=== PATIENT | female | born 1980 | race African-American/Black ===

== ENCOUNTER 2016-12-02 17:02 | Emergency (ER) | payer SELFPAY ==
--- NOTE | 2016-12-02 18:19 | ER Document Report ---
ED Medical Screen (RME) - General Stated Complaint: EAR PAIN Notes: 36 YO female c/o right ear pain x several weeks. pt c/o eczema flare x several weeks. TRAVEL OUTSIDE OF THE [place] IN LAST 30 DAYS: No - Related Data Allergies/Adverse Reactions: No Known Allergies Allergy (Verified 01/30/16 08:04) Past Medical History Past Surgical History: Reports: Hx Section - Immunizations Hx Diphtheria, Pertussis, Tetanus Vaccination: No Physical Exam - Vital signs Vitals: Temp Pulse Resp BP Pulse Ox 98.3 F 87 18 148/76 H 100 12/02/16 18:04 12/02/16 18:04 12/02/16 18:04 12/02/16 18:04 12/02/16 18:04 Course - Vital Signs Vital signs: Temp Pulse Resp BP Pulse Ox 98.3 F 87 18 148/76 H 100 12/02/16 18:04 12/02/16 18:04 12/02/16 18:04 12/02/16 18:04 12/02/16 18:04
[2016-12-02] MEDS ORDERED: CEPHALEXIN 500 MG CAPSULE PO ONE (22:10)
[2016-12-02] MEDS ORDERED: PREDNISONE 20 MG TABLET PO ONE (22:10)
[2016-12-02] MEDS ORDERED: CIPROFLOXACIN HCL/DEXAMETH OTIC DROP 7.5 ML AD ONE (22:11)
--- NOTE | 2016-12-02 22:15 | ER Document Report ---
ED General - General Chief Complaint: Ear Pain Stated Complaint: EAR PAIN Notes: Patient is a 36-year-old female presents with complaint of severe psoriasis. She used to be on transabdominal cream but has not seen her doctor. She also planes of pain in her right ear for the last 2 weeks. No fevers. No infections. Mild cough. She does use Q-tips to try to clean out her ears. She says the inside of her ear feels irritated. She says it feels as if there is something in there. TRAVEL OUTSIDE OF THE [place] IN LAST 30 DAYS: No - Related Data Allergies/Adverse Reactions: shellfish derived Allergy (Verified 12/02/16 20:56) Past Medical History - Social History Smoking Status: Current Every Day Smoker Chew tobacco use (# tins/day): No Frequency of alcohol use: None Drug Abuse: None Family History: Reviewed & Not Pertinent Patient has suicidal ideation: No Patient has homicidal ideation: No Renal/ Medical History: Denies: Hx Peritoneal Dialysis Past Surgical History: Reports: Hx Section - Immunizations Hx Diphtheria, Pertussis, Tetanus Vaccination: No Review of Systems - Review of Systems Notes: My Normal Review Basic REVIEW OF SYSTEMS: CONSTITUTIONAL : Denies fever, chills, or sweats. Denies recent illness. EENT: Right ear pain CARDIOVASCULAR: Denies chest pain. RESPIRATORY: Denies cough, cold, or chest congestion. Denies shortness of breath, difficulty breathing, or wheezing. GASTROINTESTINAL: Denies abdominal pain. Denies nausea, vomiting, or diarrhea. Denies constipation. Last BM: MUSCULOSKELETAL: Denies neck or back pain or joint pain or swelling. SKIN: Psoriasis NEUROLOGICAL: Denies altered mental status or loss of consciousness. Denies headache. Denies weakness or paralysis or loss of use of either side. Denies problems with gait or speech. Denies sensory or motor loss. ALL OTHER SYSTEMS REVIEWED AND NEGATIVE. Physical Exam - Vital signs Vitals: Temp Pulse Resp BP Pulse Ox 98.3 F 87 18 148/76 H 100 12/02/16 18:04 12/02/16 18:04 12/02/16 18:04 12/02/16 18:04 12/02/16 18:04 - Notes Notes: General Appearance: Well nourished, alert, cooperative, no acute distress, no obvious discomfort. Well-appearing Vitals: reviewed, See vital signs table. Head: no swelling or tenderness to the head Eyes: PERRL, EOMI, Conjuctiva clear Ears: Right ear canal is inflamed and slightly erythematous and appears irritated from Q-tip use. The pain membrane is intact. Left ear is normal appearing. Normal appearing left hepatic membrane. Mouth: No decreasd moisture Lungs: No wheezing, No rales, No rhonci, No accessory muscle use, good air exchange bilaterally. Heart: Normal rate, Regular rythm, No murmur, no rub Extremities: strength 5/5 in all extremities, good pulses in all extremities, no swelling or tenderness in the extremities, no edema. Skin: Patient has what appears to be severe eczema with some psoriasis. I do not see any obvious areas of saline was at this time. Neuro: speech clear, oriented x 3, normal affect, responds appropriately to questions. Course - Vital Signs Vital signs: Temp Pulse Resp BP Pulse Ox 98.3 F 87 18 148/76 H 100 12/02/16 18:04 12/02/16 18:04 12/02/16 18:04 12/02/16 18:04 12/02/16 18:04 - Transfer of Care Notes: 12/02/16 22:[address] patient back on triamcinolone cream. We'll place her on tapering dose of steroids. I will have her follow-up with her primary care doctor for close reevaluation. Patient says that she does feels if she gets cellulitis when her skin is as bad being that she to use his crutches. I will place her on Keflex prophylaxis. Patient encouraged return to ER shows worsening of her symptoms. Patient agrees with plan will be discharged home. Dictation of this chart was performed using voice recognition software; therefore, there may be some unintended grammatical errors. Discharge - Discharge Clinical Impression: Ear pain Qualifiers: Laterality: right Qualified Code(s): H92.01 - Otalgia, right ear Condition: Good Disposition: HOME, SELF-CARE Additional Instructions: Please follow up with your doctor in 2-3 days for revaluation. Please stop using Q-tips in your ear canals. Please return to the ER immediately if you have fevers, any areas conerning for cellulitis, or if you feel that your are worsening. Prescriptions: Cephalexin Monohydrate [Keflex 500 mg Capsule] 500 mg PO QID #20 capsule Prednisone 10 mg PO ASDIR #42 tablet Triamcinolone Acetonide 80 gm TP DAILY #1 oint..gm.
[2016-12-02 22:36] VITALS: BP 147/79
== END 2016-12-02 22:37 | disposition home or self-care (01) ==
LOC: ER 17:02
DX: H60.91 Unspecified otitis externa, right ear (principal); H92.01 Otalgia, right ear; L40.9 Psoriasis, unspecified; R05 Cough; F17.200 Nicotine dependence, unspecified, uncomplicated; Z91.013 Allergy to seafood
CPT/HCPCS: 99282; J7512; J3490